=== PATIENT | male | born 1980 | race Caucasian/White ===

== ENCOUNTER 2016-11-05 15:41 | Emergency (ER) | payer MEDICARE ==
--- NOTE | 2016-11-05 16:58 | UC ---
Palpitation/Dysrhythmia HP - HPI Summary HPI Summary: 36 yo male with one week hx of his heart racing and beating stronger than normal Improves at work Improves with exercise (he walks a couple miles a day) some chest tightness symptoms make him feel anxious he is quitting smoking and down to cig a day rare EtOH because of his symptoms he has dramatically decreased his caffeine use no fever/chills no URI symptoms He is trying to find a MD in the [place] area (he has no vehicle) - History of Current Complaint Chief Complaint: UCGeneralIllness Stated Complaint: HIGH BLOOD PRESSURE Time Seen by Provider: 11/05/16 16:03 Hx Obtained From: Patient Onset/Duration: Gradual Onset, Lasting Weeks Timing: Constant Severity Initially: Moderate Severity Currently: Moderate Pain Intensity: 2 Pain Scale Used: 0-10 Numeric Character: Fast, Pounding Aggravating Factor(s): Caffeine, Other - worse when he is alone in apt Alleviating Factor(s): Exertion, Other - better when at work Associated Signs & Symptoms: Positive: Dizzy - Allergy/Home Medications Allergies/Adverse Reactions: Allergies Allergy/AdvReac Type Severity Reaction Status Date / Time No Known Allergies Allergy Verified 11/05/16 16:01 Home Medications: Home Medications Gabapentin CAP(*) [Neurontin 300 CAP(*)] 300 mg PO TID PRN 11/05/16 [History Confirmed 11/05/16] traZODone TAB* [Desyrel TAB*] 50 mg PO BEDTIME 11/05/16 [History Confirmed 11/05] PMH/Surg Hx/FS Hx/Imm Hx Previously Healthy: Yes - Surgical History Surgical History: None - Family History Known Family History: Positive: Cardiac Disease, Hypertension - Social History Alcohol Use: Occasionally Substance Use Type: None Smoking Status (MU): Light Every Day Tobacco Smoker Review of Systems Constitutional: Negative Skin: Negative Eyes: Negative ENT: Negative Respiratory: Negative Cardiovascular: Palpitations Gastrointestinal: Negative Genitourinary: Negative Motor: Negative Neurovascular: Negative Musculoskeletal: Negative Neurological: Negative Psychological: Negative Is Patient Immunocompromised?: No All Other Systems Reviewed And Are Negative: Yes Physical Exam Triage Information Reviewed: Yes Appearance: Well-Appearing, No Pain Distress, Well-Nourished Vital Signs: Initial Vital Signs Temp 98.1 F 11/05/16 15:57 Pulse 133 11/05/16 15:57 Resp 12 11/05/16 15:57 BP 154/102 11/05/16 15:57 Pulse Ox 99 11/05/16 15:57 Vital Signs Reviewed: Yes Eyes: Positive: Conjunctiva Clear, Other: - no proptosis ENT: Positive: Hearing grossly normal. Negative: Nasal congestion, Nasal drainage, TMs normal, Tonsillar exudate, Trismus, Muffled/hoarse voice Neck: Positive: Supple, Nontender, Other: - no thyromegaly Respiratory: Positive: Lungs clear, Normal breath sounds, No respiratory distress, No accessory muscle use Cardiovascular: Positive: RRR, No Murmur, Tachycardia Abdomen Description: Positive: Nontender Musculoskeletal: Positive: ROM Intact, No Edema Neurological: Positive: Alert Psychological Exam: Normal Skin Exam: Normal Diagnostics - EKG Cardiac Rate: Tachycardia Cardiac Rhythm: Sinus: Normal Ectopy: None ST Segment: Normal Palpitations Course/Dx - Differential Dx/Diagnosis Provider Diagnoses: sinus tachycardia. elevated blood pressure Discharge - Discharge Plan Condition: Stable Disposition: HOME Prescriptions: Atenolol [Tenormin 25 MG] 25 mg PO DAILY #30 tab Patient Education Materials: Tachycardia (ED) Referrals: [facility] [place] [facility] [Outside] (call for helpo finding a local MD) Additional Instructions: blood work is pending you need further investigation of your rapid heart beat and elevated blood pressure return for new or worsening symptoms recheck here in one week if not better
[2016-11-05 17:04] VITALS: BP 152/88
[2016-11-05 19:01] LABS: Hematocrit 44 % (42-52); Hemoglobin 15.1 g/dl (14.0-18.0); Mean Corpuscular HGB Conc 34 g/dl (31-36); Mean Corpuscular Hemoglobin 30 pg (27-31); Mean Corpuscular Volume 88 fL (80-94); Mean Platelet Volume 7 um3 (7.4-10.4); Red Cell Distribution Width 13 % (10.5-15); White Blood Count 8.3 10^3/ul (3.5-10.8)
[2016-11-05 19:27] LABS: TSH (Thyroid Stimulating Horm) 0.4 mcIU/mL (0.34-5.60)
[2016-11-05 19:32] LABS: Albumin 4.4 g/dL (3.2-5.2); BUN/Creatinine Ratio 9.1 (8-20); Calcium 9.1 mg/dL (8.6-10.3); EGFR African American 127.5 (>60); EGFR Non-African American 99.1 (>60); Globulin 2.4 g/dL (2-4); Potassium 3.9 mmol/L (3.5-5.0); Total Bilirubin 0.3 mg/dL (0.2-1.0); Total Protein 6.8 g/dL (6.4-8.9)
== END 2016-11-05 16:57 | disposition home or self-care (01) ==
LOC: UCEAST 15:41
DX: R00.0 Tachycardia, unspecified (principal); R03.0 Elevated blood-pressure reading, without diagnosis of hypertension; Z72.0 Tobacco use
CPT/HCPCS: 36415; 80053; 84443; 85025; 93005; 99212; G0463

== ENCOUNTER 2017-03-31 15:06 | Emergency (ER) | payer MEDICARE ==
[2017-03-31 15:34] VITALS: BP 138/87
[2017-03-31] MEDS ORDERED: Ibuprofen TAB* 600 MG PO ONE (16:04)
--- NOTE | 2017-03-31 16:42 | RAD ---
INDICATION: Right shoulder pain. TECHNIQUE: 4 views of the right shoulder were obtained. FINDINGS: The bones are in normal alignment. No fracture is seen. There is a small sclerotic lesion within the glenoid process of the scapula. This is a nonspecific finding although likely represents a benign bone island. Joint spaces appear maintained. No arthritic change is seen. IMPRESSION: NO EVIDENCE FOR ACUTE FINDING.
--- NOTE | 2017-03-31 16:45 | RAD ---
INDICATION: Neck pain. COMPARISON: There are no prior studies available for comparison. TECHNIQUE: 5 views of the cervical spine were obtained including lateral, oblique, AP, open-mouth odontoid views. FINDINGS: C1-C7 are visualized. The vertebra are in normal alignment. No prevertebral soft tissue swelling or fracture is seen. The C6 and C7 vertebral bodies and intervertebral discs appear slightly hypoplastic. There is mild to moderate degenerative disc disease at the C5-C6 level. There is mild neural foraminal narrowing on the right side. IMPRESSION: MILD TO MODERATE DEGENERATIVE DISC DISEASE AT THE C5-C6 LEVEL.
--- NOTE | 2017-03-31 16:46 | RAD ---
INDICATION: Back pain. COMPARISON: There are no prior studies available for comparison. TECHNIQUE: AP and lateral films of the dorsal spine were obtained. FINDINGS: There is a mild dorsal scoliosis convex toward the right side. The vertebra are otherwise in normal alignment. No fracture is seen. There is mild degenerative disc disease in the mid and lower dorsal spine. IMPRESSION: MILD DEGENERATIVE DISC DISEASE.
--- NOTE | 2017-03-31 17:15 | UC ---
Dario French Stephanie, scribed for Laron Humphries MD on 03/31/17 at 1623 . Upper Extremity HPI - HPI Summary HPI Summary: The pt is a 36 y/o M presenting to with c/o R shoulder pain that began 2 weeks ago. The shoulder pain is described as a constant burning pain with tingling. Symptoms include stiff neck. The pt states he went to the chiropractor but has not felt pain relief. The pt mentions hx of a fractured collar bone when he was 8 years old. - History of Current Complaint Chief Complaint: UCUpperExtremity Stated Complaint: SHOULDER PAIN Time Seen by Provider: 03/31/17 15:53 Hx Obtained From: Patient Onset/Duration: Gradual Onset, Lasting Weeks - 2, Still Present Severity Currently: Moderate Pain Intensity: 6 Pain Scale Used: 0-10 Numeric Location Of Pain: Is Discrete @ - R shoulder, Radiates To - neck Aggravating Factor(s): Movement Alleviating Factor(s): Nothing - Allergies/Home Medications Allergies/Adverse Reactions: Allergies Allergy/AdvReac Type Severity Reaction Status Date / Time No Known Allergies Allergy Verified 03/31/17 15:35 Home Medications: Home Medications Sertraline* [Zoloft*] 50 mg PO DAILY 03/31/17 [History Confirmed 03/31/17] PMH/Surg Hx/FS Hx/Imm Hx Previously Healthy: Yes - The pt denies any past medical hx. - Surgical History Surgical History: None - Family History Known Family History: Positive: Cardiac Disease, Hypertension - Social History Occupation: Employed Full-time Lives: With Family Alcohol Use: Occasionally Substance Use Type: None Smoking Status (MU): Light Every Day Tobacco Smoker Review of Systems Constitutional: Negative Skin: Negative Eyes: Negative ENT: Negative Respiratory: Negative Cardiovascular: Negative Gastrointestinal: Negative Genitourinary: Negative Motor: Weakness - R arm/shoulder Neurovascular: Negative Musculoskeletal: Other: - teck stiffness, R shoulder pain Neurological: Other - burning and tingling in R shoulder/arm All Other Systems Reviewed And Are Negative: Yes Physical Exam Triage Information Reviewed: Yes Vital Signs: Initial Vital Signs Temp 97.5 F 03/31/17 15:30 Pulse 93 03/31/17 15:30 Resp 20 03/31/17 15:30 BP 138/87 03/31/17 15:30 Pulse Ox 100 03/31/17 15:30 Vital Signs Reviewed: Yes - Additional Comments General: well-appearing, no pain distress Skin: warm, color reflects adequate perfusion, dry Head: normal Eyes: EOMI, [place] ENT: normal Neck: supple, nontender Respiratory: CTA, breath sounds present Cardiovascular: RRR Abdomen: soft, nontender Bowel: present Musculoskeletal: internal rotation at R UE: T4 and L UE: T9, tender on the upper thoracic spine along the R paraspinal muscles, extension: 180 bilaterally and abduction: 180 bilaterally. Neurological: normal, sensory/motor intact, A&O x3 Psychological: affect/mood appropriate Diagnostics - Radiology Shoulder XRAY Xray Interpretation: No Acute Changes Radiology Interpretation Completed By: Radiologist - NO EVIDENCE OF ACUTE FINDING Cervical Spine XRAY Xray Interpretation: Positive (See Comments) - MILD TO MODERATE DEGENERATIVE DISC DISEASE AT THE C5-C6 LEVEL Radiology Interpretation Completed By: Radiologist Thoracic Spine XRAY Xray Interpretation: No Acute Changes Radiology Interpretation Completed By: Radiologist - MILD DEGENERATIVE DISC DISEASE Upper Extremity Course/Dx - Course Course Of Treatment: Medications reviewed. BP noted and advised to follow up with PCP. NO NEUROLOGIC DEFICITS ON EXAM. DISCUSSED RESULTS OF X-RAYS WITH PATIENT. HE WILL F/U WITH PMD; CONSIDER PHYSICAL THERAPY. - Differential Dx/Diagnosis Provider Diagnoses: CERVICAL DISC DISEASE AND PAIN. THORACIC BACK PAIN. elevated BP without dx of HTN Discharge - Discharge Plan Condition: Stable Disposition: HOME Patient Education Materials: Cervical Radiculopathy (ED), Back Pain (ED), Degenerative Disc Disease (ED), Neck Pain (ED) Referrals: [facility] [place] [facility] [Outside] Additional Instructions: FOLLOW UP WITH YOUR DOCTOR. GET RECHECKED FOR ANY WORSENING OF YOUR CONDITION OR QUESTIONS OR CONCERNS. YOUR BLOOD PRESSURE WAS ELEVATED DURING TODAY'S VISIT; FOLLOW UP WITH YOUR PCP WITHIN ONE WEEK FOR FURTHER EVALUATION. The documentation as recorded by the Dario carias Stephanie accurately reflects the service I personally performed and the decisions made by me, Laron Humphries MD.
== END 2017-03-31 17:25 | disposition home or self-care (01) ==
LOC: UCEAST 15:06
DX: M50.322 Other cervical disc degeneration at C5-C6 level (principal); M51.34 Other intervertebral disc degeneration, thoracic region; R03.0 Elevated blood-pressure reading, without diagnosis of hypertension; F17.210 Nicotine dependence, cigarettes, uncomplicated
CPT/HCPCS: 72050; 72070; 99211; A9270-GY; G0463